=== PATIENT | female | born 1945 | race Caucasian/White ===

== ENCOUNTER → 2018-06-22 15:03 | Outpatient (CLI) | payer MEDICARE, SELFPAY ==
--- NOTE | 2018-06-22 | DI.MG.S_ITS ---
BILATERAL DIGITAL SCREENING MAMMOGRAM 3D/2D WITH CAD: 06/22/2018 CLINICAL: Routine screening. Comparison is made to exams dated: 02/16/2017 mammogram, 01/29/2016 mammogram, and 01/08/2015 mammogram - [facility]. There are scattered fibroglandular elements in both breasts. Current study was also evaluated with a Computer Aided Detection (CAD) system. There are benign calcifications in both breasts. No significant masses, calcifications, or other findings are seen in either breast. There has been no significant interval change. IMPRESSION: There is no mammographic evidence of malignancy. A 1 year screening mammogram is recommended.(06/23/2019) This exam was interpreted at Station ID: [id number]. NOTE: For mammograms, a report in lay terms will be sent to the patient. Approximately 15% of breast malignancies will not be visualized mammographically. In the management of a palpable breast mass, a negative mammogram must not discourage biopsy of a clinically suspicious lesion. Electronically Signed By: Maximiliano mosqueda/cliff:06/23/2018 05:19:27 letter sent: Normal Exam ACR BI-RADS Category 2: Benign Finding(s) 3342F
== END ==
PROVIDERS: PCP Nurse Practitioner Family; Visit Provider Nurse Practitioner Family
DX: Z12.31 Encounter for screening mammogram for malignant neoplasm of breast (principal)
CPT/HCPCS: 77063; 77067

== ENCOUNTER → 2019-07-20 16:26 | Outpatient (CLI) | payer MEDICARE, SELFPAY ==
--- NOTE | 2019-07-20 | DI.MG.S_ITS ---
BILATERAL DIGITAL SCREENING MAMMOGRAM 3D/2D WITH CAD: 07/20/2019 CLINICAL: Routine screening. Comparison is made to exams dated: 06/22/2018 mammogram, 02/16/2017 mammogram, and 01/29/2016 mammogram - [facility]. There are scattered fibroglandular elements in both breasts. Current study was also evaluated with a Computer Aided Detection (CAD) system. There are oyung-shaped benign secretory calcifications in both breasts. No significant masses, calcifications, or other findings are seen in either breast. There has been no significant interval change. IMPRESSION: There is no mammographic evidence of malignancy. A 1 year screening mammogram is recommended. This exam was interpreted at Station ID: [id number]. NOTE: For mammograms, a report in lay terms will be sent to the patient. Approximately 15% of breast malignancies will not be visualized mammographically. In the management of a palpable breast mass, a negative mammogram must not discourage biopsy of a clinically suspicious lesion. Electronically Signed By: Maximiliano Medina M.D. ecl/:07/20/2019 20:26:23 letter sent: Normal Exam ACR BI-RADS Category 2: Benign Finding(s) 3342F
== END ==
PROVIDERS: PCP Nurse Practitioner Family; Visit Provider Nurse Practitioner Family
DX: Z12.31 Encounter for screening mammogram for malignant neoplasm of breast (principal)
CPT/HCPCS: 77063; 77067

== ENCOUNTER → 2019-08-21 09:17 | Outpatient (CLI) | payer MEDICARE, SELFPAY ==
[2019-08-21 10:04] LABS: Add Manual Diff / Slide Review NO; Basophils Absolute Auto 0 /uL (0-100); Basophils Percent Auto 0.7 % (0-2); Eosinophils Absolute Auto 100 /uL (0-450); Eosinophils Percent Auto 1.8 % (2-4); Hematocrit 40.6 % (36-46); Hemoglobin 14.3 g/dL (12.0-16.0); Lymphocytes Absolute Auto 1600 /uL (1100-4500); Lymphocytes Percent Auto 34.9 % (25-40); Mean Corpuscular HGB Conc 35.3 % (30-36); Mean Corpuscular Hemoglobin 33.5 PG (26-34); Monocytes Absolute Auto 300 /uL (0-900); Monocytes Percent Auto 7.4 % (3-14); Neutrophils Absolute Auto 2500 /uL (1500-7000); Neutrophils Percent Auto 55.2 % (50-75); Platelet Count 275 X10^3/uL (150-400); Red Blood Cell Count 4.27 X10^6/uL (4.0-5.2); Red Cell Distribution Width 13.3 % (11.6-14.8); White Blood Cell Count 4.5 X10^3/uL (4.5-11.0)
[2019-08-21 10:12] LABS: Hemoglobin A1C% w Est Avg Glu 5.5 % (4.0-6.0)
[2019-08-21 10:23] LABS: Alanine Aminotransferase 20 IU/L (<35); Albumin 4.4 g/dL (3.5-5.0); Albumin Globulin Ratio 1.5 (1.0-2.8); Alkaline Phosphatase 73 U/L (38-126); Aspartate Aminotransferase 28 IU/L (14-36); BUN Creatinine Ratio 23.3 (6-22); Bilirubin Total 0.6 mg/dL (0.2-1.3); Blood Urea Nitrogen 21 mg/dL (7-17); Calcium 9.3 mg/dL (8.4-10.2); Carbon Dioxide 26 mmol/L (22-32); Chloride 105 mmol/L (98-107); Estimated Glomerular Filt Rate > 60.0 mL/min (>60); Globulin 2.9 g/dL (1.7-4.1); Glucose 107 mg/dL (80-110); HEMOLYSIS < 15 (0-50); Potassium 4.3 mmol/L (3.4-5.1); Sodium 137 mmol/L (137-145); Total Protein 7.3 g/dL (6.3-8.2)
[2019-08-21 10:51] LABS: Thyroid Stimulating Hormone 2.25 uIU/mL (0.47-4.68)
[2019-08-21 13:37] LABS: Cholesterol 196 mg/dL (140-199); HDL Cholesterol 59 mg/dL (40-60); LDL Cholesterol Calculated 108 mg/dL (<100); Triglycerides 147 mg/dL (35-150); VLDL Cholesterol Calculated 29 mg/dL (2-30)
== END ==
PROVIDERS: PCP Nurse Practitioner Family; Visit Provider Nurse Practitioner Family
DX: Z13.29 Encounter for screening for other suspected endocrine disorder (principal); R73.01 Impaired fasting glucose; E78.1 Pure hyperglyceridemia
CPT/HCPCS: 36415; 80053; 80061; 83036; 84443; 85025

== ENCOUNTER → 2020-08-14 17:01 | Outpatient (CLI) | payer MEDICARE, SELFPAY ==
--- NOTE | 2020-08-14 17:02 | DI.MG.S_ITS ---
BILATERAL DIGITAL SCREENING MAMMOGRAM 3D/2D WITH CAD: 08/14/2020 CLINICAL: Routine screening. Comparison is made to exams dated: 07/20/2019 mammogram, 06/22/2018 mammogram, and 02/16/2017 mammogram - [facility]. There are scattered fibroglandular elements in both breasts. Current study was also evaluated with a Computer Aided Detection (CAD) system. There are benign calcifications in both breasts. No significant masses, calcifications, or other findings are seen in either breast. There has been no significant interval change. IMPRESSION: BENIGN There is no mammographic evidence of malignancy. A 1 year screening mammogram is recommended. This exam was interpreted at Station ID: [id number]. NOTE: For mammograms, a report in lay terms will be sent to the patient. Approximately 15% of breast malignancies will not be visualized mammographically. In the management of a palpable breast mass, a negative mammogram must not discourage biopsy of a clinically suspicious lesion. Electronically Signed By: Georges Mead M.D., jr/cliff:08/15/2020 08:03:46 letter sent: Normal Exam ACR BI-RADS Category 2: Benign Finding(s) 3342F
== END ==
PROVIDERS: PCP Nurse Practitioner Family; Referring Provider Nurse Practitioner Family; Visit Provider Nurse Practitioner Family
DX: Z12.31 Encounter for screening mammogram for malignant neoplasm of breast (principal)
CPT/HCPCS: 77063; 77067

== ENCOUNTER → 2021-02-12 14:41 | Outpatient (CLI) | payer MEDICARE, SELFPAY ==
--- NOTE | 2021-02-12 | DI.ECHO.S_ITS ---
[facility] +---------+ [facility] +---------+ : : [address] : : : : [id number] : : : : Phone: [phone]+ Echocardiogram Report + + :Name: ADELE CANTRELL Study Date: 02/12/2021 Height: 62 in : :[facility] ReadingLocation: Weight: 144 lb : : Gender: Female BSA: 1.7 m2 : :: 1945 Age: 75 yrs BP: 156/92 mmHg: :Reason For Study: CARDIAC MURMUR : :Ordering Physician: ROSEMARY SALOMON Performed By: Michelle Mcarthur : :Referring: ROSEMARY SALOMON : + + Interpretation Summary 1) Normal left ventricular thickness, size, wall motion, and systolic function (EF 65-70%). 2) Normal right ventricular size and function. 3) No significant valvular abnormalities. 4) Hypertension present during the study (BP 156/92mmHg). 5) No prior Echo available for comparison. Procedure: A two-dimensional transthoracic echocardiogram with color flow and Doppler was performed. The study quality was technically adequate. There is no prior echocardiogram noted for this patient. The patient was in sinus rhythm with heart rates between 57-72 bpm during the exam. Left Ventricle: The left ventricle is normal in size and wall thickness. The ejection fraction is estimated to be 65-70%. Left ventricular systolic function appears normal without focal wall motion abnormalities. Diastolic parameters suggest probable normal left ventricular diastolic function and normal filling pressures. Right Ventricle: The right ventricle is normal in size and function. Atria: The left atrial size is normal. Right atrial size is normal. There is no Doppler evidence for an interatrial shunt. Mitral Valve: There is mild mitral annular calcification. The mitral valve leaflets appear mildly thickened, but open well. There is mild mitral regurgitation. Aortic Valve: The aortic valve is trileaflet. The aortic valve opens well. There is no aortic valve stenosis. No aortic regurgitation is present. Tricuspid Valve: The tricuspid valve is normal in structure and function. There is mild tricuspid regurgitation. The right ventricular systolic pressure is estimated to be at least 27 mmHg based on an estimated right atrial pressure of 3 mm Hg. Pulmonic Valve: The pulmonic valve is not well seen, but is grossly normal. There is no pulmonic valvular regurgitation. Great Vessels: The aortic root is normal size. The ascending aorta is normal in size. The IVC is of normal diameter and collapses greater than 50% with a sniff. This suggests a low right atrial pressure of 3 mm Hg. Pericardium/ Pleura There is no pericardial effusion. There is no pleural effusion. MMode/2D Measurements & Calculations LVIDd: 4.3 cm LVOT diam: 2.0 cm LVIDs: 2.3 cm Ao root diam: 2.7 cm FS: 46.2 % asc Aorta Diam: 3.4 cm IVSd: 0.77 cm Ao Arch Diam (Prox Trans): 2.6 cm LVPWd: 0.63 cm LV thomason. diameter/BSA (cm/m^2): 2.6 LV sys. diameter/BSA (cm/m^2): 1.4 LA A2 area: 20.2 cm2 RA long axis: 5.6 cm LA A4 area: 16.5 cm2 RA area: 14.8 cm2 LA length (vol): 5.2 cm RA vol: 33.3 ml LA vol: 54.5 ml RA : 20.0 ml/m2 LA vol index: 32.8 ml/m2 IVC diam: 1.0 cm RVD1 (basal): 2.4 cm TAPSE: 2.2 cm Doppler Measurements & Calculations Ao V2 max: 153.3 cm/sec LVOT Max Elkin: 130.0 cm/sec Ao V2 mean: 105.2 cm/sec LV V1 max P.8 mmHg Ao max P.4 mmHg LV V1 VTI: 30.0 cm Ao mean P.0 mmHg GENET(I,D): 3.0 cm2 Ao V2 VTI: 31.6 cm GENET(V,D): 2.7 cm2 sev ratio: 0.95 GENET indexed to BSA (cm^2/m^2): 1.8 MV E max elkin: 91.6 cm/sec TR max elkin: 248.3 cm/sec MV A max elkin: 114.0 cm/sec TR max P.7 mmHg MV E/A: 0.80 PA pr(Accel): 22.5 mmHg Med Peak E' Elkin: 6.0 cm/sec E/E' med: 15.3 Lat Peak E' Elkin: 7.4 cm/sec E/E' lat: 12.4 E/e' average: 13.8 MV dec time: 0.21 sec SV(LVOT): 94.1 ml Reading Physician:04:58 PM
== END ==
PROVIDERS: PCP Nurse Practitioner Family; Referring Provider Nurse Practitioner Family; Visit Provider Nurse Practitioner Family
DX: I08.1 Rheumatic disorders of both mitral and tricuspid valves (principal); R01.1 Cardiac murmur, unspecified
CPT/HCPCS: 93306

== ENCOUNTER → 2021-09-10 12:53 | Outpatient (CLI) | payer MEDICARE, SELFPAY ==
--- NOTE | 2021-09-10 | DI.MG.S_ITS ---
BILATERAL DIGITAL SCREENING MAMMOGRAM 3D/2D WITH CAD: 09/10/2021 CLINICAL: Routine screening. Comparison is made to exams dated: 08/14/2020 mammogram, 07/20/2019 mammogram, and 06/22/2018 mammogram - [facility]. There are scattered fibroglandular elements in both breasts. Current study was also evaluated with a Computer Aided Detection (CAD) system. There are benign calcifications in both breasts. No significant masses, calcifications, or other findings are seen in either breast. There has been no significant interval change. IMPRESSION: BENIGN There is no mammographic evidence of malignancy. A 1 year screening mammogram is recommended. This exam was interpreted at Station ID: [id number]. NOTE: For mammograms, a report in lay terms will be sent to the patient. Approximately 15% of breast malignancies will not be visualized mammographically. In the management of a palpable breast mass, a negative mammogram must not discourage biopsy of a clinically suspicious lesion. Electronically Signed By: Georges Mead M.D., jr/cliff:09/10/2021 14:51:15 letter sent: Normal Exam ACR BI-RADS Category 2: Benign Finding(s) 3342F
== END ==
PROVIDERS: PCP Nurse Practitioner Family; Referring Provider Family Medicine; Visit Provider Family Medicine
DX: Z12.31 Encounter for screening mammogram for malignant neoplasm of breast (principal)
CPT/HCPCS: 77063; 77067

== ENCOUNTER → 2022-10-09 14:08 | Outpatient (CLI) | payer MEDICARE, SELFPAY ==
--- NOTE | 2022-10-09 | DI.MG.S_ITS ---
BILATERAL DIGITAL SCREENING MAMMOGRAM 3D/2D WITH CAD: 10/09/2022 CLINICAL: Routine screening. Comparison is made to exams dated: 09/10/2021 mammogram, 08/14/2020 mammogram, 07/20/2019 mammogram, 06/22/2018 mammogram, and 02/16/2017 mammogram - [facility]. There are scattered areas of fibroglandular density in both breasts (category b / 25%-50% glandular tissue). Current study was also evaluated with a Computer Aided Detection (CAD) system. There are benign calcifications in both breasts. No significant masses, calcifications, or other findings are seen in either breast. There has been no significant interval change. IMPRESSION: BENIGN There is no mammographic evidence of malignancy. A 1 year screening mammogram is recommended. Based on the Tyrer Cuzick model (a risk assessment model) the patient's lifetime risk is 2.7% and her 10 year risk is 0.0%. According to the ACR, ACS, and NCCN guidelines, an annual breast MRI exam along with mammogram is recommended if the patient's lifetime risk is 20% or greater. This exam was interpreted at Station ID: [id number]. NOTE: For mammograms, a report in lay terms will be sent to the patient. Approximately 15% of breast malignancies will not be visualized mammographically. In the management of a palpable breast mass, a negative mammogram must not discourage biopsy of a clinically suspicious lesion. Electronically Signed By: Georges Mead M.D., jr/cliff:10/09/2022 14:43:49 letter sent: Normal Exam ACR BI-RADS Category 2: Benign Finding(s) 3342F
== END ==
PROVIDERS: PCP Family Medicine; Referring Provider Family Medicine; Visit Provider Family Medicine
DX: Z12.31 Encounter for screening mammogram for malignant neoplasm of breast (principal)
CPT/HCPCS: 77063; 77067

== ENCOUNTER → 2023-10-29 14:32 | Outpatient (CLI) | payer MEDICARE, SELFPAY ==
--- NOTE | 2023-10-29 14:34 | DI.MG.S_ITS ---
BILATERAL DIGITAL SCREENING MAMMOGRAM 3D/2D WITH CAD: 10/29/2023 CLINICAL: Routine screening. Comparison is made to exams dated: 10/09/2022 mammogram, 09/10/2021 mammogram, and 08/14/2020 mammogram - [facility]. There are scattered areas of fibroglandular density in both breasts (category b / 25%-50% glandular tissue). Current study was also evaluated with a Computer Aided Detection (CAD) system. No significant masses, calcifications, or other findings are seen in either breast. There has been no significant interval change. IMPRESSION: NEGATIVE There is no mammographic evidence of malignancy. A 1 year screening mammogram is recommended. Based on the Tyrer Cuzick model (a risk assessment model) the patient's lifetime risk is 2.3% and her 10 year risk is 0.0%. According to the ACR, ACS, and NCCN guidelines, an annual breast MRI exam along with mammogram is recommended if the patient's lifetime risk is 20% or greater. This exam was interpreted at Station ID: [id number]. NOTE: For mammograms, a report in lay terms will be sent to the patient. Approximately 15% of breast malignancies will not be visualized mammographically. In the management of a palpable breast mass, a negative mammogram must not discourage biopsy of a clinically suspicious lesion. Electronically Signed By: Any Villafana M.D., PH.D john/cliff:10/29/2023 22:15:43 letter sent: Normal Exam ACR BI-RADS Category 1: Negative 3341F
== END ==
PROVIDERS: PCP Family Medicine; Referring Provider Family Medicine; Visit Provider Family Medicine
DX: Z12.31 Encounter for screening mammogram for malignant neoplasm of breast (principal); R92.323 Mammographic fibroglandular density, bilateral breasts
CPT/HCPCS: 77063; 77067

== ENCOUNTER 2023-11-23 08:21 | Day surgery (SDC) | payer MEDICARE, SELFPAY ==
[2023-11-23 08:41] VITALS: BP 158/80; PULSE 80; RESP 20; TEMP 36.6; O2SAT 98
[2023-11-23] MEDS: LACTATED RINGERS 1,000 ML 42 ML IV (08:50)
--- NOTE | 2023-11-23 09:13 | P.HP_ITS ---
History of Present Illness History of Present Illness Date Patient Seen: 11/23/23 Time Patient Seen: 09:13 Chief complaint: Colonoscopy Narrative: 78-year-old woman personal history of colonic polyps here for screening colonoscopy. Last colonoscopy 2016. No family history of intestinal malignancy. No abdominal concerns today. [facility] Medical History Encounter for colonoscopy following colon polyp removal Normal colonoscopy Social History Smoking Status: Never smoker alcohol intake: current Meds Home Medications and Allergies Home Medications Medication Instructions Recorded Confirmed Type cholecalciferol (vitamin D3) 125 ##0 06/04/17 History mcg (5,000 unit) capsule sodium,potassium,mag sulfates 17.5 See Rx Instructions PO .COMPLEX 11/02/23 Rx gram-3.13 gram-1.6 gram oral soln #354 mL (Suprep Bowel Prep Kit) Allergies Allergy/AdvReac Type Severity Reaction Status Date / Time No Known Drug Allergies Allergy Verified 11/23/23 08:38 Exam Vital Signs (past 8 hours): - 11/23/23 08:41 Temperature 98 F Pulse Rate 80 Respiratory Rate 20 Blood Pressure 158/80 H Pulse Oximetry 98 Oxygen Delivery Method Room Air Oxygen Delivery Method Room Air Narrative Exam Narrative: General adult woman alert oriented no acute distress Chest nonlabored respiration Extremities warm well perfused Assessment & Plan Assessment & Plan narrative: The patient requires colorectal screening and colonoscopy is recommended. Technical details were discussed. Risks, benefits, alternatives explained. Risks including but not limited to myocardial infarction, aspiration, bleeding, pain, missed lesion, incomplete examination, need for further radiographic studies, colonic perforation, and need for major abdominal surgery were discussed. All questions were answered to their satisfaction, and they are in agreement with this plan.
[2023-11-23 09:39] VITALS: BP 121/52; PULSE 73; RESP 18; TEMP 37.1; O2SAT 99
--- NOTE | 2023-11-23 09:42 | P.OP.COLON_ITS ---
Operative Date/Time/Diagnoses Date of procedure: 11/23/23 Time of procedure: 09:42 Pre-op diagnosis: Personal history of colonic polyps Procedure & Clinicians Study performed: Sigmoidoscopy Same procedure as scheduled: Yes Indications: Personal history of colonic polyps Colorectal screening Surgeon: Omar Nickerson Procedure Notes Procedure in detail: The history and physical was performed/updated and the patient is ASA class is 2. The procedure was discussed in detail with the patient. Potential risks complications including infection, bleeding, missed diagnosis, perforation, need for surgery, and were explained. Their questions were answered and inform ed consent was obtained. Patient was brought to the procedure room and placed standard monitoring equipment. The patient's vital signs were monitored continuously throughout the entire procedure. Prior to starting time-out was performed. The patient was placed in the left lateral recumbent position. Procedural sedation was administered by anesthesia. Examination began with a thorough inspection of the perianal area there was no evidence of fissures, fistulae, external hemorrhoids or cutaneous malignancy. The colonoscopy scope was then placed into the anal canal and was advanced forward. At 50 cm from the verge we encountered a tight twist within the colon and could make no further safe forward progress. The scope was then slowly withdrawn. Specimen(s): none sent Impression: Normal sigmoidoscopy Post-procedure Plan for aftercare: No further colonoscopy Disposition: same day surgery
[2023-11-23 09:45] VITALS: BP 121/60; PULSE 67; RESP 20; TEMP 36.9; O2SAT 97
[2023-11-23 09:49] VITALS: BP 151/66; PULSE 65; RESP 21; TEMP 36.9; O2SAT 99
== END 2023-11-23 10:08 | disposition home or self-care (01) ==
PROVIDERS: PCP Family Medicine; Referring Provider Surgery; Visit Provider Surgery
PROC: 0DJD8ZZ Inspection of Lower Intestinal Tract, Via Natural or Artificial Opening Endoscopic (ICD-10-PCS; CPT 45378; principal; 2023-11-23 09:15)
DX: Z12.11 Encounter for screening for malignant neoplasm of colon (principal); Z86.010 Personal history of colon polyps; Z53.09 Procedure and treatment not carried out because of other contraindication
CPT/HCPCS: G0105; J2704

== ENCOUNTER → 2024-11-10 15:53 | Outpatient (CLI) | payer MEDICARE, SELFPAY ==
--- NOTE | 2024-11-10 15:55 | DI.MG.S_ITS ---
BILATERAL DIGITAL SCREENING MAMMOGRAM 3D/2D WITH CAD: 11/10/2024 CLINICAL: Routine screening. Comparison is made to exams dated: 10/29/2023 mammogram, 10/09/2022 mammogram, and 09/10/2021 mammogram - [facility]. There are scattered areas of fibroglandular density (category b / 25%-50% glandular tissue). Current study was also evaluated with a Computer Aided Detection (CAD) system. There are benign calcifications in both breasts. No significant masses, calcifications, or other findings are seen in either breast. There has been no significant interval change. IMPRESSION: BENIGN There is no mammographic evidence of malignancy. A 1 year screening mammogram is recommended. Based on the Tyrer Cuzick model (a risk assessment model) the patient's lifetime risk is 2.0% and her 10 year risk is 0.0%. According to the ACR, ACS, and NCCN guidelines, an annual breast MRI exam along with mammogram is recommended if the patient's lifetime risk is 20% or greater. This exam was interpreted at Station ID: [id number]. NOTE: For mammograms, a report in lay terms will be sent to the patient. Approximately 15% of breast malignancies will not be visualized mammographically. In the management of a palpable breast mass, a negative mammogram must not discourage biopsy of a clinically suspicious lesion. Electronically Signed By: Maxx zepeda/cliff:11/11/2024 12:02:46 letter sent: Normal Exam ACR BI-RADS Category 2: Benign
== END ==
PROVIDERS: PCP Family Medicine; Referring Provider Family Medicine; Visit Provider Family Medicine
DX: Z12.31 Encounter for screening mammogram for malignant neoplasm of breast (principal)
CPT/HCPCS: 77063; 77067

== ENCOUNTER 2025-04-13 14:52 | Observation (INO) | payer MEDICARE, SELFPAY ==
[2025-04-13] VITALS (10 sets, daily range): BP systolic 162–202; BP diastolic 70–92; PULSE 66–95; RESP 16–28; TEMP 36.6; O2SAT 93–96; BMI 25.6
--- NOTE | 2025-04-13 15:06 | EKG_ITS ---
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
--- NOTE | 2025-04-13 15:08 | ED_ITS ---
HPI - Neuro Symptoms/Deficit General Chief Complaint: Neuro Symptoms/Deficit Stated Complaint: Difficulty speaking Time Seen by Provider: 04/13/25 14:55 Source: patient and family Mode of arrival: Ambulatory History of Present Illness HPI Narrative: Patient is a 79-year-old female without any significant past medical history presents to the emergency department from home for evaluation of difficulty speaking, she states that this happened at around 2:45 p.m.. At time of evaluation symptoms have completely resolved. She also states that she felt some right-sided tongue numbness. Patient denies any trauma or falls not on any blood thinners, denies any other symptoms at this time. Stroke alert was called immediately upon arrival. Patient with a NIH of 0 no focal deficits On Anticoagulants: No Related Data Home Medications ?Medication ?Instructions ?Recorded ?Confirmed cholecalciferol (vitamin D3) 125 ##0 06/04/17 mcg (5,000 unit) capsule Allergies Allergy/AdvReac Type Severity Reaction Status Date / Time No Known Drug Allergies Allergy Verified 11/23/23 08:38 Review of Systems Review of Systems Narrative: General: Denies fever, chills, weight loss HEENT: Denies headache, eye drainage, eye irritation, head trauma, sore throat, voice change Cardiovascular: Denies any chest pain, palpitations, tachycardia Respiratory: Denies any shortness of breath, cough, wheeze, stridor GI/: Denies any abdominal pain, nausea, vomiting, diarrhea, bright red blood per rectum, melanotic stools, urinary frequency, urinary retention, dysuria, hematuria MSK: Denies any joint pain, muscle pains, swelling Skin: Denies any rashes, lesions, discoloration Neuro: Difficulty speaking, right-sided tongue numbness, Denies any headache, lightheadedness, dizziness, fainting, weakness Psych: Denies SI/HI Hematologic/Lymphatic On Anticoagulants: No Patient History Medical History Encounter for colonoscopy following colon polyp removal Normal colonoscopy Social History Smoking Status: Never smoker alcohol intake: current Smoking Status: Never smoker alcohol intake frequency: a few times a week Exam Narrative Exam Narrative: General: Cooperative, well-developed, not in acute distress HEENT: Normocephalic, atraumatic, PERRLA, normal sclera, eyelids normal Neck: Active full range of motion, atraumatic Chest: Normal to inspection, negative crepitus, no overlying erythema ecchymosis Respiratory: Normal respiratory effort, not in acute respiratory distress, clear to auscultation bilaterally negative cough, wheeze, tachypnea, rhonchi, rales Cardiology: Regular rate rhythm negative gallop, murmur, rubs GI/: No tenderness to palpation, soft, non rigid, normal to inspection, exam deferred MSK: Full active range of motion in all 4 extremities, atraumatic, no tenderness to palpation of any bony prominences Skin: No rashes or lesions noted Neuro: NIH of 0 no focal deficits Alert awake oriented x3, moves all 4 extremities spontaneously, cranial nerves intact, able to answer all questions appropriately follows commands appropriately Psych: Cooperative, negative suicidal or homicidal ideations Initial Vital Signs Initial Vital Signs: Vital Signs Pulse Rate 90 04/13/25 15:04 Respiratory Rate 16 04/13/25 15:04 Blood Pressure 196/92 H 04/13/25 15:04 Pulse Oximetry 94 04/13/25 15:04 Oxygen Delivery Method Room Air 04/13/25 15:04 Course Orders Ordered: ED Orders 04/13/25 15:[address] angio head and neck Stat EKG-12 Lead Stat 04/13/25 15:07 CXR [XR chest 1V] Stat Complete Blood Count AUTO DIFF Stat Comprehensive Metabolic Panel Stat Ethanol (ETOH) Stat MAG [Magnesium] Stat PTT Partial Thromboplastin Andrea Stat Prothrombin Time INR Stat Troponin & CK Cardiac Panel Stat 04/13/25 16:45 Urine Drug Screen, Rapid Stat 04/13/25 16:53 Urinalysis and Microscopic Stat Vital Signs Vital signs: Vital Signs - 8 hr 04/13/25 15:04 04/13/25 15:22 04/13/25 15:22 Temperature Pulse Rate 90 95 H Respiratory Rate 16 Blood Pressure 196/92 H 202/84 H Pulse Oximetry 94 95 Oxygen Delivery Method Room Air 04/13/25 15:30 04/13/25 15:30 Temperature 97.9 F Pulse Rate 87 Respiratory Rate 20 Blood Pressure 165/70 H Pulse Oximetry 95 Oxygen Delivery Method MDM - Neuro Symptoms/Deficit Differential Diagnosis Differential diagnosis: Likely other (CVA, TIA, electrolyte abnormality, pneumonia, ACS) Lab Data 04/13/25 15:07 04/13/25 15:07 Labs: Lab Results 04/13/25 04/13/25 04/13/25 Range/Units 15:02 15:07 16:45 WBC 9.0 (4.5-11.0) X10^3/uL RBC 4.11 (4.0-5.2) X10^6/uL Hgb 13.0 (12.0-16.0) g/dL Hct 38.4 (36-46) % MCV 93.5 (80-100) fL MCH 31.5 (26-34) PG MCHC 33.7 (30-36) % RDW 14.6 (11.6-14.8) % Plt Count 351 (150-400) X10^3/uL Neut % (Auto) 76.6 H (50-75) % Lymph % (Auto) 16.4 L (25-40) % [place] % (Auto) 4.5 (3-14) % Eos % (Auto) 1.8 L (2-4) % Baso % (Auto) 0.7 (0-2) % Neut # (Auto) 6900 (7524-4148) /uL Lymph # (Auto) 1500 (5810-8083) /uL [place] # (Auto) 400 (0-900) /uL Eos # (Auto) 200 (0-450) /uL Baso # (Auto) 100 (0-100) /uL PT 11.9 (9.4-12.5) SECONDS INR 1.1 (0.9-1.3) APTT 32 (25.1-36.5) SECONDS Sodium 137 (137-145) mmol/L Potassium 3.8 (3.4-5.1) mmol/L Chloride 102 (98-107) mmol/L Carbon Dioxide 26 (22-32) mmol/L BUN 20 H (7-17) mg/dL Creatinine 0.79 (0.52-1.04) mg/dL Estimated GFR > 60 (>60) mL/min BUN/Creatinine Ratio 25.3 H (6-22) Glucose 151 H (70-99) mg/dL POC Whole Bld Glucose 137 H (70-99) mg/dL Calcium 9.3 (8.4-10.2) mg/dL Magnesium 2.0 (1.6-2.3) mg/dL Total Bilirubin 0.4 (0.2-1.3) mg/dL AST 38 H (14-36) IU/L ALT 27 (<35) IU/L Alkaline Phosphatase 92 (38-126) U/L Total Creatine Kinase 193 H (30-135) U/L Troponin I < 0.012 (0.01-0.034) ng/mL Total Protein 7.7 (6.3-8.2) g/dL Albumin 4.7 (3.5-5.0) g/dL Globulin 3.0 (1.7-4.1) g/dL Albumin/Globulin Ratio 1.6 (1.0-2.8) U Opiates 300ng/mL cut Negative (Negative) Ur Oxycodone Screen Negative (Negative) Urine Methadone Screen Negative (Negative) Ur Barbiturates Screen Negative (Negative) U Tricyclic Antidepress Negative (Negative) Ur Phencyclidine Scrn Negative (Negative) Ur Amphetamines Screen Negative (Negative) U Methamphetamines Scrn Negative (Negative) Ur MDMA Scrn (Ecstasy) Negative (Negative) U Benzodiazepines Scrn Negative (Negative) Urine Cocaine Screen Negative (Negative) U Marijuana (THC) Screen Negative (Negative) Urine pH Normal (Normal) Urine Specific [place] Normal (Normal) Ethyl Alcohol < 10 (<10) mg/dL Ur Creatinine Normal (Normal) Imaging Data CT scan - head: Radiologist's Impression: [place] [address] CT Scan Report Signed Patient: Reyna Christy MR#: [id number] : 1945 Acct:[id number] Age/Sex: 79 / F Date of Service: 04/13/25 Loc: ED Accession Number: [id number] Procedure: CT Stroke Ordering Provider: Daniel Coleman D.O. PROCEDURE: CT STROKE INDICATIONS: difficulty speaking (resolved) TECHNIQUE: Noncontrast 4.5 mm thick angled axial sections acquired from the foramen magnum to the vertex, with coronal reformats. For radiation dose reduction, the following was used: automated exposure control, adjustment of mA and/or kV according to patient size. COMPARISON: None. FINDINGS: Image quality: Diagnostic. CSF spaces: Basal cisterns are patent. No extra-axial fluid collections. The ventricles are symmetric in size and shape. Brain: No intracranial bleeds or mass effect. There is cerebral volume loss, with resultant ventricular and sulcal prominence. There are periventricular and deep white matter chronic small vessel ischemic changes. There is intracranial internal carotid artery atherosclerosis. Skull and face: Calvarium and visualized facial bones appear intact, without suspicious lesions. Sinuses: Visualized sinuses and mastoids are clear. IMPRESSION: No acute intracranial pathology. Comment: Findings were discussed with Dr. Coleman on 04/13/2025 at 1521 hours This study fulfills neurological imaging criteria for inclusion or exclusion of acute stroke therapies based on available published neurological guidelines. CT angio head and neck: Radiologist's Impression: [address] [address] [address] Scan Report Signed Patient: Reyna Christy MR#: [id number] : 1945 Acct:[id number] Age/Sex: 79 / F Date of Service: 04/13/25 Loc: ED Accession Number: [id number] Procedure: CT angio head and neck Ordering Provider: Daniel Coleman D.O. PROCEDURE: CT ANGIO HEAD AND NECK INDICATIONS: difficulty speaking (resolved) TECHNIQUE: After the administration of intravenous contrast, 1 mm thick sections acquired from the aortic arch through the [place] of [place]. 3-dimensional allwzzq-jpxoltwhq-eqaerbnivo (MIP) and/or volume rendering reformats were acquired of the central intracranial vasculature and neck separately. For radiation dose reduction, the following was used: automated exposure control, adjustment of mA and/or kV according to patient size. COMPARISON: [facility], CR, XR CHEST 1V, 04/13/2025, 15:07. [facility], CT, CT STROKE, 04/13/2025, 15:11. FINDINGS: Image quality: Diagnostic. Cerebral CT Angiogram: Internal carotid arteries: No acute findings. Intracranial ICA are patent with no significant stenosis. No occlusion. No aneurysm. Anterior cerebral arteries: Unremarkable. No significant stenosis. No occlusion. No aneurysm. Middle cerebral arteries: Unremarkable. No significant stenosis. No occlusion. No aneurysm. Posterior cerebral arteries: Unremarkable. No significant stenosis. No occlusion. No aneurysm. Basilar artery: Unremarkable. No significant stenosis. No occlusion. No aneurysm. Vertebral arteries: Unremarkable as visualized. Dural venous sinuses: Unremarkable given phase of enhancement. Other: Arterial phase appearance of the brain parenchyma is unremarkable. Neck CT Angiogram: Internal carotid arteries: Unremarkable. No significant stenosis. No dissection or occlusion. Common carotid arteries: Unremarkable. No significant stenosis. No dissection or occlusion. External carotid arteries: Unremarkable. No occlusion. Vertebral arteries: Unremarkable. No significant stenosis. No dissection or occlusion. Aortic Arch and Mediastinum: Partially visualized aortic arch unremarkable without evidence of aneurysm. Origins of the great vessels unremarkable. Other: Arterial phase soft tissues of the neck and chest are unremarkable. IMPRESSION: No significant intracranial arterial abnormality is seen. No significant abnormality is seen within the arteries of the neck. Chest x-ray: Radiologist's Impression: [address] [address] XRay Report Signed Patient: Reyna Christy MR#: [id number] : 1945 Acct:[id number] Age/Sex: 79 / F Date of Service: 04/13/25 Loc: ED Accession Number: [id number] Procedure: XR chest 1V Ordering Provider: Daniel Coleman D.O. PROCEDURE: XR CHEST 1V INDICATIONS: stroke alert TECHNIQUE: One view of the chest was acquired. COMPARISON: None. FINDINGS: Surgical changes and devices: None. Lungs and pleura: Lungs are clear. No pleural effusions or pneumothorax. Mediastinum: Mediastinal contours appear normal except for presence of a large hiatal hernia behind the heart. Heart size is normal. Bones and chest wall: No suspicious bony lesions. Overlying soft tissues appear unremarkable. IMPRESSION: Reduced inspiratory volume, large hiatal hernia containing air-fluid level behind the heart. ECG Data Interpretation: EKG interpreted ED physician sinus 81 beats per minute QTC 446, left axis deviation QRS SC interval within normal limits, no STEMI MDM Narrative Medical decision making narrative: Patient is a 79-year-old female without any significant past medical history coming into the ED from home for evaluation of difficulty speaking states that it started at 2:45 p.m., also stated that she had some tingling/numbness to the right side of her tongue, at time of evaluation patient completely back to normal NIH of 0 no focal deficits. He is not on any blood thinners no trauma no falls not complaining of any other symptoms. Stroke alert was called immediately upon arrival here. Patient's CT head CT angio head and neck negative, CXR without any acute cardiopulmonary abnormality. Lab work otherwise unremarkable. Symptoms possibly TIA in nature therefore we will admit patient for TIA workup. Patient understands agrees with this plan The patient's management plan was discussed Dr. Laboy, who agrees to admit the patient to their service and assumes care of this patient at this time. Full admission orders will be placed by the primary team. Discharge Plan Departure Patient Disposition: Admitted as Observation Clinical Impression: Brain TIA Admit Date/Time: 04/13/25 17:08 Admit Provider: Kerwin Laboy
[2025-04-13 15:25] LABS: INR 1.1 (0.9-1.3); Prothrombin Time 11.9 SECONDS (9.4-12.5)
[2025-04-13 15:28] LABS: Add Manual Diff / Slide Review NO; Hematocrit 38.4 % (36-46); Hemoglobin 13.0 g/dL (12.0-16.0); Lymphocytes Absolute Auto 1500 /uL (1100-4500); Mean Corpuscular HGB Conc 33.7 % (30-36); Mean Corpuscular Hemoglobin 31.5 PG (26-34); Mean Corpuscular Volume 93.5 fL (80-100); PTT Partial Thromboplastin Tim 32 SECONDS (25.1-36.5); Platelet Count 351 X10^3/uL (150-400)
[2025-04-13 15:30] LABS: Magnesium 2.0 mg/dL (1.6-2.3)
[2025-04-13 15:31] LABS: Alanine Aminotransferase 27 IU/L (<35); Albumin 4.7 g/dL (3.5-5.0); Albumin Globulin Ratio 1.6 (1.0-2.8); Alkaline Phosphatase 92 U/L (38-126); Blood Urea Nitrogen 20 mg/dL (7-17); Calcium 9.3 mg/dL (8.4-10.2); Carbon Dioxide 26 mmol/L (22-32); Chloride 102 mmol/L (98-107); Creatine Kinase 193 U/L (30-135); Estimated Glomerular Filt Rate > 60 mL/min (>60); Ethanol (ETOH) < 10 mg/dL (<10); Globulin 3.0 g/dL (1.7-4.1); Glucose 151 mg/dL (70-99); HEMOLYSIS < 15 (0-50); Potassium 3.8 mmol/L (3.4-5.1); Sodium 137 mmol/L (137-145); Total Protein 7.7 g/dL (6.3-8.2)
[2025-04-13 15:42] LABS: Troponin I < 0.012 ng/mL (0.01-0.034)
[2025-04-13 17:06] LABS: UR Morphine/Opiate cutoff 300 Negative (Negative); Ur Specific Gravity Normal (Normal); Urine MDMA Negative (Negative); Urine Methamphetamines Negative (Negative); Urine Tetrahydrocannabinol Negative (Negative); Urine Tricyclic Antidepressant Negative (Negative)
--- NOTE | 2025-04-13 18:13 | PC.NURSE ---
Patient reports needing to go to the bathroom. She is alert, oriented and ambulates without difficulty. Steady on feet. Declines dizziness or lightheadedness.
--- NOTE | 2025-04-13 18:46 | PC.NURSE ---
Day shift: Pt in room from ED at approx 1835. SHe is A&Ox4. Steady on feet. Oriented to room and call light. call light in reach. NIH 0. Pt with no complaints or concerns at this time. Daughter in room for support. Printed information on TIA and gave to Pt and family.
--- NOTE | 2025-04-13 19:05 | P.HP_ITS ---
History of Present Illness History of Present Illness Date Patient Seen: 04/13/25 Time Patient Seen: 19:06 Chief complaint: Difficulty speaking Narrative: She was an 79-year-old female otherwise healthy who does not take any medications. She developed acute transient aphasia at around 3:00 a.m. today and this lasted for about 15 minutes. She had goblet go look coming out of her mouth and a couple of normal words mixed in. She had mild numbness around the right side of her mouth but no other symptoms including headache, visual changes, diplopia, numbness weakness of arms or legs. She drove her granddaughter home and then came to the hospital. Her of 59 years in February. ED course negative CT head CTA of head and neck. She was in sinus rhythm. She was admitted for observation and concern for TIA. Risk factors: She denies smoking, hyperlipidemia, hypertension, family history of stroke. [facility] Medical History Encounter for colonoscopy following colon polyp removal Normal colonoscopy Social History Smoking Status: Never smoker alcohol intake: current Meds Home Medications and Allergies Home Medications ?Medication ?Instructions ?Recorded ?Confirmed ?Type cholecalciferol (vitamin D3) 125 ##0 06/04/17 History mcg (5,000 unit) capsule Allergies Allergy/AdvReac Type Severity Reaction Status Date / Time No Known Drug Allergies Allergy Verified 11/23/23 08:38 Review of Systems Review of Systems Narrative: All else reviewed and otherwise unremarkable except as noted in the history and physical. Exam Vital Signs (past 8 hours): - 04/13/25 15:04 04/13/25 15:22 04/13/25 15:22 Temperature Pulse Rate 90 95 H Respiratory Rate 16 Blood Pressure 196/92 H 202/84 H Pulse Oximetry 94 95 Oxygen Delivery Method Room Air 04/13/25 15:30 04/13/25 15:30 04/13/25 16:00 Temperature 97.9 F Pulse Rate 87 80 Respiratory Rate 20 24 Blood Pressure 165/70 H Pulse Oximetry 95 93 Oxygen Delivery Method 04/13/25 16:00 04/13/25 16:30 04/13/25 16:30 Temperature Pulse Rate 78 Respiratory Rate 26 H Blood Pressure 171/79 H 183/82 H Pulse Oximetry 94 Oxygen Delivery Method 04/13/25 16:45 04/13/25 16:45 04/13/25 17:00 Temperature Pulse Rate 79 Respiratory Rate 24 Blood Pressure 183/79 H 185/85 H Pulse Oximetry 94 Oxygen Delivery Method 04/13/25 17:00 04/13/25 17:30 04/13/25 17:30 Temperature Pulse Rate 75 72 Respiratory Rate 28 H 25 H Blood Pressure 162/74 H Pulse Oximetry 95 94 Oxygen Delivery Method 04/13/25 18:00 04/13/25 18:00 Temperature Pulse Rate 73 Respiratory Rate 24 Blood Pressure 187/85 H Pulse Oximetry 96 Oxygen Delivery Method Room Air Oxygen Delivery Method Room Air Narrative Exam Narrative: NAD, alert and oriented, fluent speech, calm. Normocephalic skull, EOMI, anicteric sclera, symmetric pupils. Oropharynx unremarkable, no droop. Neck supple, midline trachea, no adenopathy. Lungs clear, normal rate and effort. Heart regular, no murmur gallop or rub. Abdomen is soft, non distended and non tender. Extremities are free of edema. Skin is free of rash or lesions. Joints are not swollen or deformed. Judgment appears to be normal. Normal Cranial nerves, [place] accent. Motor strength is 5/5 all extremities. Objective ECG Impression: Intervals [place] Rate: 81 P: 46 ME: 156 QRS: -26 QRSD: 90 T: -4 QT: 384 QTc: 446 Interpretive Statements Normal sinus rhythm Minimal voltage criteria for LVH, may be normal variant ( [place] product ) Nonspecific ST abnormality Imaging Multiple studies:: Radiologist's impression: Chest x-ray: Reduced inspiratory volume, large hiatal hernia containing air-fluid level behind the heart. Head and neck CTA: No significant intracranial arterial abnormality is seen. No significant abnormality is seen within the arteries of the neck. Brain CT: No acute intracranial pathology. Labs 04/13/25 15:07 04/13/25 15:07 Labs: Laboratory Results - last 24 hr 04/13/25 04/13/25 04/13/25 15:02 15:07 16:45 WBC 9.0 RBC 4.11 Hgb 13.0 Hct 38.4 MCV 93.5 MCH 31.5 MCHC 33.7 RDW 14.6 Plt Count 351 Neut % (Auto) 76.6 H Lymph % (Auto) 16.4 L [place] % (Auto) 4.5 Eos % (Auto) 1.8 L Baso % (Auto) 0.7 Neut # (Auto) 6900 Lymph # (Auto) 1500 [place] # (Auto) 400 Eos # (Auto) 200 Baso # (Auto) 100 PT 11.9 INR 1.1 APTT 32 Sodium 137 Potassium 3.8 Chloride 102 Carbon Dioxide 26 BUN 20 H Creatinine 0.79 Estimated GFR > 60 BUN/Creatinine Ratio 25.3 H Glucose 151 H POC Whole Bld Glucose 137 H Calcium 9.3 Magnesium 2.0 Total Bilirubin 0.4 AST 38 H ALT 27 Alkaline Phosphatase 92 Total Creatine Kinase 193 H Troponin I < 0.012 Total Protein 7.7 Albumin 4.7 Globulin 3.0 Albumin/Globulin Ratio 1.6 U Opiates 300ng/mL cut Negative Ur Oxycodone Screen Negative Urine Methadone Screen Negative Ur Barbiturates Screen Negative U Tricyclic Antidepress Negative Ur Phencyclidine Scrn Negative Ur Amphetamines Screen Negative U Methamphetamines Scrn Negative Ur MDMA Scrn (Ecstasy) Negative U Benzodiazepines Scrn Negative Urine Cocaine Screen Negative U Marijuana (THC) Screen Negative Urine pH Normal Urine Specific [place] Normal Ethyl Alcohol < 10 Ur Creatinine Normal Assessment & Plan Assessment & Plan narrative: 1. 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 Plan: -dual antiplatelet therapy and high dose statin starting now. -serial neurologic exam tonight. -MRI to rule out stroke Pending this workup, can make further decisions regarding need for echo or referral for outpatient echo. She was full resuscitation, confirmed today. Daughter's proxy decision maker. Time-Based Coding :: 35 min spent with patient and on the chart (including review of chart, obtaining history, exam, reviewing outside data, placing orders, documenting exam and treatment plan, and counseling patient) on 04/13. Quality MIPS - Admit I confirm the patient?s Advance Care Plan is present, Code status is documented, Surrogate decision maker is in patient?s record [If Yes, STOP here]: Yes MIPS - Meds 'Current medications' to include all prescriptions, ghzf-fnd-bdpeybn products, herbals, cannabis/cannabidiol products, and vitamin/mineral/dietary (nutritional) supplements. I have utilized all available resources to obtain, update, or review the patient?s current medications. [If Yes, STOP here]: Yes
--- NOTE | 2025-04-13 19:06 | DI.MRI.S_ITS ---
PROCEDURE: MR HEAD/BRAIN WO CON INDICATIONS: tia TECHNIQUE: Non-contrast axial T1 spin echo, axial T2 fast spin echo, sagittal and axial FLAIR, coronal T2 fast spin echo, axial gradient echo, axial diffusion and ADC through the brain. COMPARISON: None. FINDINGS: Image quality: Excellent. CSF spaces: Ventricles appear symmetric in size and shape. Basal cisterns are patent. No extra-axial fluid collections. Brain: No intracranial bleeds or mass effects. There is cerebral volume loss for age. There are periventricular and deep white matter chronic small vessel ischemic changes. Brainstem appears normal. Diffusion-weighted images show no acute infarct. No chronic ischemic insults. Normal intravascular flow voids are present. Skull and face: Calvarial bone marrow is normal in signal. Orbits are normal. Sinuses: Sinuses and mastoids are clear. IMPRESSION: No acute intracranial abnormality. Specifically, no evidence of ischemia. Dictated by: Veronica Cuenca M.D. on 04/14/2025 at 9:21 Approved by: Veronica Cuenca M.D. on 04/14/2025 at 9:24
[2025-04-13 20:17] LABS: Cholesterol 196 mg/dL (140-199); HDL Cholesterol 51 mg/dL (40-60); Triglycerides 417 mg/dL (35-150)
[2025-04-13 20:19] LABS: Hemoglobin A1C% w Est Avg Glu 5.1 % (4.0-6.0)
[2025-04-13] MEDS: ATORVASTATIN 20 MG TABLET 80 MG PO (20:36)
[2025-04-13] MEDS: HEPARIN 5,000 UNIT/ML VIAL 5000 UNIT SUBCUT (20:36)
[2025-04-13] MEDS: ASPIRIN EC 81 MG TABLET PO (20:36)
[2025-04-13] MEDS: CLOPIDOGREL 75 MG TABLET PO (20:37)
[2025-04-13 20:59] LABS: Appearance Urine UA CLEAR; Bilirubin Urine UA NEGATIVE (NEGATIVE); Color Urine UA YELLOW; Glucose Urine UA NEGATIVE (Negative); Ketones Urine UA NEGATIVE (NEGATIVE); Leukocyte Esterase Urine UA NEGATIVE (NEGATIVE); Nitrite Urine UA NEGATIVE (Negative); Occult Blood Urine UA NEGATIVE (Negative); Protein Urine UA NEGATIVE (Negative); Specific Gravity Urine UA 1.010 (1.000-1.035); Urobilinogen Urine UA 0.2 E.U./dL (0.2)
[2025-04-13 21:01] LABS: pH Urine UA 7.5 (4.5-8.0)
[2025-04-13 21:08] LABS: Culture Indicated Urine Cult Not Indicated
[2025-04-14 05:04] VITALS: BP 142/64; PULSE 66; RESP 16; O2SAT 98
--- NOTE | 2025-04-14 08:02 | P.PN_ITS ---
Subjective Subjective Date Patient Seen: 04/14/25 Exam Vital Signs (past 8 hours): - 04/14/25 05:04 Pulse Rate 66 Respiratory Rate 16 Blood Pressure 142/64 H Pulse Oximetry 98 Oxygen Flow Rate 0 Oxygen Delivery Method Room Air Oxygen Flow Rate 0 Objective Labs 04/13/25 15:07 04/13/25 15:07 Labs: Laboratory Results - last 24 hr 04/13/25 04/13/25 04/13/25 15:02 15:07 16:45 WBC 9.0 RBC 4.11 Hgb 13.0 Hct 38.4 MCV 93.5 MCH 31.5 MCHC 33.7 RDW 14.6 Plt Count 351 Neut % (Auto) 76.6 H Lymph % (Auto) 16.4 L [place] % (Auto) 4.5 Eos % (Auto) 1.8 L Baso % (Auto) 0.7 Neut # (Auto) 6900 Lymph # (Auto) 1500 [place] # (Auto) 400 Eos # (Auto) 200 Baso # (Auto) 100 PT 11.9 INR 1.1 APTT 32 Sodium 137 Potassium 3.8 Chloride 102 Carbon Dioxide 26 BUN 20 H Creatinine 0.79 Estimated GFR > 60 BUN/Creatinine Ratio 25.3 H Glucose 151 H POC Whole Bld Glucose 137 H Hemoglobin A1c 5.1 Calcium 9.3 Magnesium 2.0 Total Bilirubin 0.4 AST 38 H ALT 27 Alkaline Phosphatase 92 Total Creatine Kinase 193 H Troponin I < 0.012 Total Protein 7.7 Albumin 4.7 Globulin 3.0 Albumin/Globulin Ratio 1.6 Triglycerides 417 H Cholesterol 196 LDL Cholesterol, Calc TNP HDL Cholesterol 51 Urine Color Yellow Urine Appearance Clear Urine pH 7.5 Ur Specific [place] 1.010 Urine Protein Negative Urine Glucose (UA) Negative Urine Ketones Negative Urine Occult Blood Negative Urine Nitrate Negative Urine Bilirubin Negative Urine Urobilinogen 0.2 Ur Leukocyte Esterase Negative Urine RBC 0-1/hpf Urine WBC 1-5/hpf Ur Squamous Epith Cells 0-1 /hpf Urine Bacteria Occasional (0-1) Ur Culture Indicated? Cult not indicated Vol Urine Centrifuged 6 U Opiates 300ng/mL cut Negative Ur Oxycodone Screen Negative Urine Methadone Screen Negative Ur Barbiturates Screen Negative U Tricyclic Antidepress Negative Ur Phencyclidine Scrn Negative Ur Amphetamines Screen Negative U Methamphetamines Scrn Negative Ur MDMA Scrn (Ecstasy) Negative U Benzodiazepines Scrn Negative Urine Cocaine Screen Negative U Marijuana (THC) Screen Negative Urine Specific [place] Ethyl Alcohol < 10 Ur Creatinine 04/13/25 04/13/25 16:45 21:57 WBC RBC Hgb Hct MCV MCH MCHC RDW Plt Count Neut % (Auto) Lymph % (Auto) [place] % (Auto) Eos % (Auto) Baso % (Auto) Neut # (Auto) Lymph # (Auto) [place] # (Auto) Eos # (Auto) Baso # (Auto) PT INR APTT Sodium Potassium Chloride Carbon Dioxide BUN Creatinine Estimated GFR BUN/Creatinine Ratio Glucose POC Whole Bld Glucose 118 H Hemoglobin A1c Calcium Magnesium Total Bilirubin AST ALT Alkaline Phosphatase Total Creatine Kinase Troponin I Total Protein Albumin Globulin Albumin/Globulin Ratio Triglycerides Cholesterol LDL Cholesterol, Calc HDL Cholesterol Urine Color Urine Appearance Urine pH Normal Ur Specific [place] Urine Protein Urine Glucose (UA) Urine Ketones Urine Occult Blood Urine Nitrate Urine Bilirubin Urine Urobilinogen Ur Leukocyte Esterase Urine RBC Urine WBC Ur Squamous Epith Cells Urine Bacteria Ur Culture Indicated? Vol Urine Centrifuged U Opiates 300ng/mL cut Ur Oxycodone Screen Urine Methadone Screen Ur Barbiturates Screen U Tricyclic Antidepress Ur Phencyclidine Scrn Ur Amphetamines Screen U Methamphetamines Scrn Ur MDMA Scrn (Ecstasy) U Benzodiazepines Scrn Urine Cocaine Screen U Marijuana (THC) Screen Urine Specific [place] Normal Ethyl Alcohol Ur Creatinine Normal [facility] Medical History Encounter for colonoscopy following colon polyp removal Normal colonoscopy Social History household members: none Smoking Status: Never smoker alcohol intake: current Assessment & Plan Assessment & Plan narrative: 1. 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 Plan: -dual antiplatelet therapy and high dose statin starting now. -serial neurologic exam tonight. -MRI to rule out stroke Pending this workup, can make further decisions regarding need for echo or referral for outpatient echo. She was full resuscitation, confirmed today. Daughter's proxy decision maker. Time-Based Coding :: [TOTAL MINUTES] spent with patient and on the chart (including review of chart, obtaining history, exam, reviewing outside data, placing orders, documenting exam and treatment plan, and counseling patient) on [DATE]. Quality VTE Deep Vein Thrombosis/Pulmonary Embolism Present on Admission: No
[2025-04-14] MEDS: SODIUM CHLORIDE 0.9% FLUSH 10 ML IV (09:00)
[2025-04-14 09:40] VITALS: BP 153/75; PULSE 78; RESP 14; TEMP 35.9; O2SAT 96
[2025-04-14] MEDS: CLOPIDOGREL 75 MG TABLET PO (09:56)
[2025-04-14] MEDS: ASPIRIN EC 81 MG TABLET PO (09:56)
--- NOTE | 2025-04-14 11:00 | PT.IIE ---
Medical History (Last Reviewed 04/13/25 @ 19:07 by Kerwin Laboy MD) Encounter for colonoscopy following colon polyp removal Normal colonoscopy Physical Therapy Inpatient Evaluation/Re-Eval M1 PT/OT-IP Prior Functional Status Start: 04/14/25 13:54 Freq: NEEDED Status: Active Protocol: Document 04/14/25 11:00 AB (Rec: 04/14/25 14:07 AB Desktop) Medical Review Prior Functional Status Medical History Yes Reviewed Communication able to make needs known Mobility and Gait pt stated that she is independent with all mobilities and ambulation without AD Social History Household Members none Living Arrangements House Number of Floors ( 3 or More Floors Floors) Number of Stairs To 1 flight of steps L rail ascending to get to main level Enter/Railing? of the house where pt usually stays Home Environment Standard Height Toilet,Walk in Shower,Tub/Shower Home Equipment Front Wheel Walker M2 PT-IP Current Condition Start: 04/14/25 13:54 Freq: NEEDED Status: Active Protocol: Document 04/14/25 11:00 AB (Rec: 04/14/25 14:07 AB Desktop) Physical Therapy Current Condition Current Condition Evaluation Date 04/14/25 Treatment Diagnosis Brain TIA; difficulty in walking Onset Date 04/13/25 M3 PT-IP Subjective Start: 04/14/25 13:54 Freq: NEEDED Status: Active Protocol: Document 04/14/25 11:00 AB (Rec: 04/14/25 14:07 AB Desktop) Subjective Physical Therapy Visit Type Type Initial Evaluation Visit Start Time 11:00 Visit Stop Time 11:20 Number of HEALTH SERVICE COORDINATOR Visits 0 Physical Therapy Visit Comments Patient Comments agreeable to do PT Therapy Pain Assessment Pain Present Pain Present Denied Pain M4 PT-IP Mobility and Gait Start: 04/14/25 13:54 Freq: NEEDED Status: Active Protocol: Document 04/14/25 11:00 AB (Rec: 04/14/25 14:07 AB Desktop) PT-Bed Mobility Assessment Supine to Sit Supine to Sit Independent Sit to Supine Sit to Supine Independent PT-Transfer Assessment Sit to and From Stand Sit to and from Standby Assistance Stand Equipment Transfer Assistive None Device Orthotic/Prosthetic No Devices or Brace: Transfers Transfer Destination Chair Transfer Technique ambulated Transfer Ability Level of Assist Standby Assistance,Use of Upper Extremities Comments Mobility Comments pt in bed. daughter in room. obtained PLOF and home set up. BP: 166/62. supine to sit mod I. sit to stand SBA and ambulated in room ~ 20 ft SBA. agreed to walk in the hallway and completed ~ 250 ft without AD SBA. slow paced gait, no LOB. pt completed up/down steps using L rail ascending SBA. completed 3 sets. ambulated back to her room SBA without AD and agreed to sit up on chair. positioned pt on the chair. call light and table placed within reach. Gait Assessment Gait Gait Assistance Standby Assistance Required: Distance (Feet) 250 Able to Maintain Yes Weight Bearing Status During Gait Assistive Devices Assistive Device None,Gait Belt Orthotic/Prosthetic No Devices or Brace: Gait Deviations General Gait Pattern Antalgic Stair Climbing Assessment Evaluation Level of Assist On Standby Assistance Stairs Devices Stair Climbing Left Railing Assistive Devices Technique/Endurance Stair Climbing Ascend and Descend Direction Stair Climbing Step to Step Technique Number of Steps 3 Climbed Query Text: Stair Climbing Set # 3 Repetitions (reps) PT-Balance Assessment Sitting Balance and Reactions Static Sitting Normal Balance Ability Dynamic Sitting Normal Balance Ability Standing Balance and Reactions Static Standing Good Balance Ability Dynamic Standing Good Balance Ability Device Used without AD M5 PT-IP Objective Assessments Start: 04/14/25 13:54 Freq: NEEDED Status: Active Protocol: Document 04/14/25 11:00 AB (Rec: 04/14/25 14:07 AB Desktop) Orientation Orientation/Cognition Level of Alertness Alert Orientation Name,Age,Birthday,Month,Date,Year,Day of Week,Place, Situation Language Function No Deficits Noted Ability Safety Awareness Understands Safety Issues Memory Description No Deficits Noted Gross Range of Motion Lower Extremity ROM Assessment Within Functional Limits Strength Lower Extremity Strength Assessment Within Functional Limits Coordination Assessment Gross Coordination Gross Coordination WNL Sensation Assessment Sensation Gross Sensation WNL Muscle Tone Muscle Tone WNL Yes M6 PT-IP Treatment Start: 04/14/25 13:54 Freq: NEEDED Status: Active Protocol: Document 04/14/25 11:00 AB (Rec: 04/14/25 14:07 AB Desktop) Physical Therapy Treatment Education Education Provided Safety M7 PT-IP Assessment and Plan Start: 04/14/25 13:54 Freq: NEEDED Status: Active Protocol: Document 04/14/25 11:00 AB (Rec: 04/14/25 14:07 AB Desktop) PT Summary Assessment and Plan Potential Rehabilitation Good Potential Status of Condition Stable at Evaluation Summary Impairments Pain,ROM,Strength,Balance,Coordination,Sensation,Tone, Cognition,Bed Mobility,Transfers,Gait,Activity Tolerance Assessment Summary pt is an 79 y/o F who is admitted for brain TIA. pt is mod I with bed mobility and SBA for transfers and ambulation for safety and does not need AD. pt has no LOB during ambulation. no further PT interventions needed at this time. Goals Other Goals up/down 1 flight of steps L rail ascending I Frequency of Treatment Frequency Of Discharge Treatment Treatment Plan Physical Therapy Bed Mobility Training,Transfer Training,Gait Training, Treatment Plan Therapeutic Exercise,Balance Retraining,Discharge Planning,Neuromuscular Re-ed,Coordination Retraining, Manual Therapy Recommendations To Nursing Amount of Assist Standby Assistance Needed Discharge Recommendations PT Discharge Home Recommendations Transportation Needs Private Vehicle at Discharge - PT assist 1
--- NOTE | 2025-04-14 11:00 | P.DS_ITS ---
History of Present Illness History of Present Illness Date Patient Seen: 04/14/25 Time Patient Seen: 11:00 Chief complaint: Difficulty speaking Narrative: She was an 79-year-old female otherwise healthy who does not take any medications. She developed acute transient aphasia at around 3:00 a.m. today and this lasted for about 15 minutes. She had goblet go look coming out of her mouth and a couple of normal words mixed in. She had mild numbness around the right side of her mouth but no other symptoms including headache, visual changes, diplopia, numbness weakness of arms or legs. She drove her granddaughter home and then came to the hospital. Her of 59 years in February. ED course negative CT head CTA of head and neck. She was in sinus rhythm. She was admitted for observation and concern for TIA. Risk factors: She denies smoking, hyperlipidemia, hypertension, family history of stroke. Discharge Providers Provider Date of admission: 04/13/25 17:08 Discharge Date: 04/14/25 Primary care physician: Lenin Love MD Consults: 04/13/25 19:05 Consult to Discharge Planning Routine Comment: Consult to Occupational Therapy Evaluate & Treat Comment: Physician Instructions: Evaluate and treat Consult to Physical Therapy Evaluate & Treat Comment: Physician Instructions: Evaluate and Treat Consult to Speech Therapy Evaluate & Treat Comment: Physician Instructions: Evaluate and treat Discharge provider: Jorden Pantoja MD Summary Hospital Course Hospital Course: TIA with transient aphasia Her symptoms were quite transient and did not recur while in the hospital. She did not require speech therapy. She was started on aspirin, atorvastatin and clopidogrel. CTA of the head and neck showed no carotid disease. MRI of the brain showed no stroke. Echocardiogram has not been done. She will be discharging home on daily aspirin and atorvastatin. She will need to follow-up with her primary care physician, Dr. Love and already has an appointment there in 4 days for consideration of adding an outpatient echocardiogram to her workup. Status at Discharge Cognitive/behavioral status at discharge: at baseline, oriented Functional status at discharge: independent ambulation Overall status at discharge: patient is back to baseline Exam Vital Signs (past 8 hours): - 04/14/25 05:04 04/14/25 09:40 Temperature 96.7 F L Pulse Rate 66 78 Respiratory Rate 16 14 Blood Pressure 142/64 H 153/75 H Pulse Oximetry 98 96 Oxygen Flow Rate 0 Oxygen Delivery Method Room Air Oxygen Flow Rate 0 Narrative Exam Narrative: Alert and oriented x3. No apparent distress. Heart is regular rate and rhythm without murmur. Lungs are clear to auscultation bilaterally Extremities have no ankle edema Neurologic exam: Motor function is 5/5 throughout. Cranial nerves 2-12 test intact. There is no tremor. DTRs are symmetric. Babinski's are downgoing bilaterally. Objective Labs 04/13/25 15:07 04/13/25 15:07 Labs: Laboratory Results - last 24 hr 04/13/25 04/13/25 04/13/25 15:02 15:07 16:45 WBC 9.0 RBC 4.11 Hgb 13.0 Hct 38.4 MCV 93.5 MCH 31.5 MCHC 33.7 RDW 14.6 Plt Count 351 Neut % (Auto) 76.6 H Lymph % (Auto) 16.4 L [place] % (Auto) 4.5 Eos % (Auto) 1.8 L Baso % (Auto) 0.7 Neut # (Auto) 6900 Lymph # (Auto) 1500 [place] # (Auto) 400 Eos # (Auto) 200 Baso # (Auto) 100 PT 11.9 INR 1.1 APTT 32 Sodium 137 Potassium 3.8 Chloride 102 Carbon Dioxide 26 BUN 20 H Creatinine 0.79 Estimated GFR > 60 BUN/Creatinine Ratio 25.3 H Glucose 151 H POC Whole Bld Glucose 137 H Hemoglobin A1c 5.1 Calcium 9.3 Magnesium 2.0 Total Bilirubin 0.4 AST 38 H ALT 27 Alkaline Phosphatase 92 Total Creatine Kinase 193 H Troponin I < 0.012 Total Protein 7.7 Albumin 4.7 Globulin 3.0 Albumin/Globulin Ratio 1.6 Triglycerides 417 H Cholesterol 196 LDL Cholesterol, Calc TNP HDL Cholesterol 51 Urine Color Yellow Urine Appearance Clear Urine pH 7.5 Ur Specific [place] 1.010 Urine Protein Negative Urine Glucose (UA) Negative Urine Ketones Negative Urine Occult Blood Negative Urine Nitrate Negative Urine Bilirubin Negative Urine Urobilinogen 0.2 Ur Leukocyte Esterase Negative Urine RBC 0-1/hpf Urine WBC 1-5/hpf Ur Squamous Epith Cells 0-1 /hpf Urine Bacteria Occasional (0-1) Ur Culture Indicated? Cult not indicated Vol Urine Centrifuged 6 U Opiates 300ng/mL cut Negative Ur Oxycodone Screen Negative Urine Methadone Screen Negative Ur Barbiturates Screen Negative U Tricyclic Antidepress Negative Ur Phencyclidine Scrn Negative Ur Amphetamines Screen Negative U Methamphetamines Scrn Negative Ur MDMA Scrn (Ecstasy) Negative U Benzodiazepines Scrn Negative Urine Cocaine Screen Negative U Marijuana (THC) Screen Negative Urine Specific [place] Ethyl Alcohol < 10 Ur Creatinine 04/13/25 04/13/25 16:45 21:57 WBC RBC Hgb Hct MCV MCH MCHC RDW Plt Count Neut % (Auto) Lymph % (Auto) [place] % (Auto) Eos % (Auto) Baso % (Auto) Neut # (Auto) Lymph # (Auto) [place] # (Auto) Eos # (Auto) Baso # (Auto) PT INR APTT Sodium Potassium Chloride Carbon Dioxide BUN Creatinine Estimated GFR BUN/Creatinine Ratio Glucose POC Whole Bld Glucose 118 H Hemoglobin A1c Calcium Magnesium Total Bilirubin AST ALT Alkaline Phosphatase Total Creatine Kinase Troponin I Total Protein Albumin Globulin Albumin/Globulin Ratio Triglycerides Cholesterol LDL Cholesterol, Calc HDL Cholesterol Urine Color Urine Appearance Urine pH Normal Ur Specific [place] Urine Protein Urine Glucose (UA) Urine Ketones Urine Occult Blood Urine Nitrate Urine Bilirubin Urine Urobilinogen Ur Leukocyte Esterase Urine RBC Urine WBC Ur Squamous Epith Cells Urine Bacteria Ur Culture Indicated? Vol Urine Centrifuged U Opiates 300ng/mL cut Ur Oxycodone Screen Urine Methadone Screen Ur Barbiturates Screen U Tricyclic Antidepress Ur Phencyclidine Scrn Ur Amphetamines Screen U Methamphetamines Scrn Ur MDMA Scrn (Ecstasy) U Benzodiazepines Scrn Urine Cocaine Screen U Marijuana (THC) Screen Urine Specific [place] Normal Ethyl Alcohol Ur Creatinine Normal [facility] Medical History Encounter for colonoscopy following colon polyp removal Normal colonoscopy Social History household members: none Smoking Status: Never smoker alcohol intake: current Discharge Plan Discharge Plan Patient Disposition: Home Provider Discharge Comment: Follow up with Dr. Love in 4 more days. Discharge orders & Medications Prescriptions: New aspirin 81 mg Tablet,Delayed Release (Dr/Ec) 81 mg PO DAILY Qty: 30 0RF atorvastatin 20 mg Tablet 80 mg PO BEDTIME Qty: 30 0RF Continued cholecalciferol (vitamin D3) 5,000 UNIT capsule Qty: 0 Follow up/Referrals: Lenin Love MD [Primary Care Provider, Family Practice] Diet/Activity/Treatments Diet: Regular Visit Report/Discharge Packet Instructions: Transient Ischemic Attack, DI for Transient Ischemic Attack Stand Alone Forms: Patient Portal/API, Stroke Signs & Symptoms Discharge Data Primary Care Provider: Lenin Love Attending Provider: Kerwin Laboy Admit Date/Time: 04/13/25 17:08 Quality VTE Deep Vein Thrombosis/Pulmonary Embolism Present on Admission: No
[2025-04-14 12:53] VITALS: BP 144/76; PULSE 82; RESP 20; TEMP 36.6; O2SAT 94
--- NOTE | 2025-04-14 13:51 | PC.NURSE ---
Pt seen by MD and given discharge instructions. Seen by PT and given instructions. Reveiwed d\c packet with pt, she reports no concerns at this time. Questions answered. Pt d/c to home via auto.
== END 2025-04-14 13:40 | disposition home or self-care (01) ==
LOC: ED 17:00 → AC 17:08
PROVIDERS: Admitting Provider Hospitalist; Emergency Provider Student in an Organized Health Care Education/Training Program; PCP Family Medicine; Referring Provider Student in an Organized Health Care Education/Training Program; Visit Provider Hospitalist
DX: G45.9 Transient cerebral ischemic attack, unspecified (principal); R47.01 Aphasia; R29.700 NIHSS score 0
CPT/HCPCS: 36415; 70450; 70496; 70498; 70551; 71045; 80053; 80061; 80305; 80320; 81001; 82550; 82962; 83036; 83735; 84484; 85025; 85610; 85730; 93005; 97161; 97530; 99284; G0378; J1644; Q9967